=== PATIENT | male | born 1975 | race Caucasian/White ===

== ENCOUNTER → 2019-04-29 09:36 | Outpatient (BNVA) | payer OTHER, SELFPAY | PROVIDERS: Visit Provider Nurse Practitioner Family | DX: I10 Essential (primary) hypertension (principal); F32.9 Major depressive disorder, single episode, unspecified; E78.2 Mixed hyperlipidemia; F17.200 Nicotine dependence, unspecified, uncomplicated | CPT/HCPCS: 80053; 80061; 85025 ==

== ENCOUNTER → 2019-07-16 09:05 | Outpatient (BNVA) | payer OTHER, SELFPAY | PROVIDERS: Visit Provider Nurse Practitioner Family | DX: D72.829 Elevated white blood cell count, unspecified (principal) | CPT/HCPCS: 85025 ==

== ENCOUNTER → 2020-01-20 10:11 | Outpatient (BNVA) | payer OTHER, SELFPAY | PROVIDERS: Visit Provider Nurse Practitioner Family | DX: I10 Essential (primary) hypertension (principal); Z12.5 Encounter for screening for malignant neoplasm of prostate; Z00.00 Encounter for general adult medical examination without abnormal findings; F32.9 Major depressive disorder, single episode, unspecified; E78.2 Mixed hyperlipidemia; D72.829 Elevated white blood cell count, unspecified; F17.200 Nicotine dependence, unspecified, uncomplicated | CPT/HCPCS: 80053; 80061; 84443; 85025; G0103 ==

== ENCOUNTER → 2021-04-28 17:04 | Outpatient (BNVA) | payer OTHER, SELFPAY | PROVIDERS: PCP Nurse Practitioner Family; Visit Provider Nurse Practitioner Family | DX: I10 Essential (primary) hypertension (principal); Z12.5 Encounter for screening for malignant neoplasm of prostate; Z12.83 Encounter for screening for malignant neoplasm of skin; E78.2 Mixed hyperlipidemia; Z00.00 Encounter for general adult medical examination without abnormal findings; Z12.11 Encounter for screening for malignant neoplasm of colon; Z12.12 Encounter for screening for malignant neoplasm of rectum | CPT/HCPCS: 80053; 80061; 83721; 84443; 85025; G0103 ==

== ENCOUNTER 2021-07-29 06:24 | Day surgery (SDC) | payer OTHER, SELFPAY ==
[2021-07-27 09:09] VITALS: BMI 32.1
--- NOTE | 2021-07-29 06:40 | P.HP_ITS ---
Same Day Surgery H&P Indication for Procedure/HPI DATE OF PROCEDURE: July 29, 2021 CHIEF COMPLAINT/INDICATIONFOR SURGICAL PROCEDURE: Screening colonoscopy PREOP DIAGNOSIS: Screening colonoscopy PLANNED PROCEDURE: Operation Date: 07/29/21 08:00 Proposed Procedures p Colonoscopy 97585/[id number](Not Applicable) - Tom Singh MD This is a pleasant 46 years old gentleman presents to my practice for screening colonoscopy. Patient reports no change in bowel habits or colon cancer. Or bleeding per rectum. ROS All systems have been reviewed negative except as for the above or per problem list. Medications/Allergies* Home Medications Medication Instructions Recorded Confirmed Type citalopram 20 mg tablet 20 mg PO DAILY 07/27/21 07/27/21 History hydrochlorothiazide 25 mg tablet 25 mg PO DAILY 07/27/21 07/27/21 History Allergies/Adverse Reactions Allergy/AdvReac Type Severity Reaction Status Date / Time No Known Allergies Allergy Verified 07/29/21 07:21 Pertinent History/Comorbid Conditions* Medical History (Updated 04/28/21 @ 16:04 by MEE Oliver) Depression Hyperlipidemia Hypertension Osteoporosis Surgical History (Updated 01/20/20 @ 10:03 by MEE Oliver) No pertinent past surgical history Family History (Updated 04/29/19 @ 09:11 by Eun Quiros LPN, RT) Heart disease Hypertension Family/Other Social History Smoking and tobacco status: current every day smoker cigarettes Packs smoked per day: 1 Years cigarettes smoked: 23 Second hand smoke exposure: Yes Alcohol intake: former Household members: family Marital status: Single History of recent travel: No Current gender identity: Male Special lowell needs: No Agree to transfusion: Yes Pertinent Exam Findings alert, oriented x 3, clear to auscultation bilaterally, regular rate & rhythm and procedure specific exam findings (Abdominal examination nontender nondistended soft) Recommendations Surgery/Procedure today (Screening colonoscopy) Other Plans: Plan of care; After thorough history and physical examination and reviewing the chart, plan to perform screening colonoscopy. I discussed with the patient in details the risks,benefits,alternatives and indications.The risk of aspiration, bleeding, soft tissue injury, perforation of the colon and other potential concomitant complications were explained to the patient in details,also the potential need for Laproscoy/Laparotomy to repair any related complications including but not limited to colectomy and or Closotomy.The patient understood this well and did agree to proceed. Rationale was carefully and clearly discussed with the patient.Appropriate informed consent have been reviewed and signed All questions have been answered and all concerns have been addressed to patient's satisfaction. Verbal and written Instructions were given to the patient for colonoscopy prep Coding Level of Care Code Acute Multimedia Engineer for Dustin Pham
[2021-07-29 06:49] VITALS: BP 135/87; PULSE 70; RESP 18; TEMP 36.6; O2SAT 96
--- NOTE | 2021-07-29 06:54 | P.ANESASSM_ITS ---
Pre-Anesthetic Assessment Height/Weight: Height 1.7 m Weight 92.986 kg Temp Pulse Resp BP Pulse Ox 98 F 70 18 135/87 96 07/29/21 06:49 07/29/21 06:49 07/29/21 06:49 07/29/21 06:49 07/29/21 06:49 Preop Diagnosis: Screening colonoscopy Operation Date: 07/29/21 08:00 Proposed Procedures p Colonoscopy [id number]/[id number](Not Applicable) - Tom Singh MD Familial anesthetic complications: none Was Beta Eugenio taken within 24 hours: N/A Was Clonidine taken within 24 hours: N/A Last intake: Intake Last Liquid Date 07/28/21 Last Liquid Time 23:45 Last Solid Date 07/28/21 Last Solid Time 02:00 Social Tobacco and No alcohol Exam alert and oriented x 3 Airway Submandibular: within normal limits Cervical ROM: within normal limits Mallampati: Class II Dentition: full History/ROS No significant history except as noted Pulmonary None reported CV/HEM None reported None reported Hepatic None reported GI None reported Metabolic None reported Musc/skel None reported Neuropsych None reported Anesthetic Plan ASA status: 2 Anesthesia: Anesthesia Evaluation and MAC Risk of > 500 ml blood loss (7ml/kg in children): No Medications/Allergies Home Medications Medication Instructions Recorded Confirmed Last Taken Type rosuvastatin 40 mg tablet 40 mg PO QDAY #90 tab 04/22/21 07/27/21 07/27/21 Rx omega-3 fatty acids 1,000 mg 1,000 mg PO BID #60 cap 05/03/21 07/27/21 07/27/21 Rx capsule citalopram 20 mg tablet 20 mg PO DAILY 07/27/21 07/27/21 07/27/21 History hydrochlorothiazide 25 mg tablet 25 mg PO DAILY 07/27/21 07/27/21 Unknown History Allergies Allergy/AdvReac Type Severity Reaction Status Date / Time No Known Allergies Allergy Verified 04/28/21 15:49 [facility] Anesthesia Medical History Depression Hyperlipidemia Hypertension Osteoporosis Surgical History No pertinent past surgical history Family History Family/Other Hypertension Other Heart disease Social History Smoking and tobacco status: current every day smoker cigarettes Packs smoked per day: 1 Years cigarettes smoked: 23 Second hand smoke exposure: Yes Alcohol intake: former Household members: family Marital status: Single History of recent travel: No Current gender identity: Male Special lowell needs: No Agree to transfusion: Yes Data Anesthesia Cardiac Studies: No Data to Display
[2021-07-29] MEDS: sodium chloride 0.9% 1,000 ML 30 ML IV (07:00)
[2021-07-29 07:42] VITALS: BP 88/61; PULSE 64; RESP 17; TEMP 36.9; O2SAT 93
[2021-07-29 07:52] VITALS: BP 97/63; PULSE 68; RESP 16; O2SAT 96
[2021-07-29 07:59] VITALS: BP 106/67; PULSE 63; RESP 16; O2SAT 98
--- NOTE | 2021-07-29 11:54 | ANE.PACU2 ---
Inpatient post-anesthesia follow up: Airway intact: Yes Vital signs: Temperature 98.5 F Pulse Rate 63 Respiratory Rate 16 Blood Pressure 106/67 Pulse Oximetry 98 Oxygen Delivery Me thod Room Air Oxygen Flow Rate Fraction of Inspir ed Oxygen Hydration adequate: Yes Nausea and vomiting: No Pain level: 1 Mental status: Baseline
== END 2021-07-29 08:15 | disposition home or self-care (01) ==
PROVIDERS: PCP Nurse Practitioner Family; Visit Provider Surgery
PROC: 0DJD8ZZ Inspection of Lower Intestinal Tract, Via Natural or Artificial Opening Endoscopic (ICD-10-PCS; CPT 45378; principal; 2021-07-29 08:00)
DX: Z12.11 Encounter for screening for malignant neoplasm of colon (principal); K57.30 Diverticulosis of large intestine without perforation or abscess without bleeding; E78.5 Hyperlipidemia, unspecified; I10 Essential (primary) hypertension; M81.0 Age-related osteoporosis without current pathological fracture; F17.210 Nicotine dependence, cigarettes, uncomplicated
CPT/HCPCS: 45378; J2704; J7030

== ENCOUNTER → 2022-05-31 10:08 | Outpatient (BNVA) | payer OTHER, SELFPAY | PROVIDERS: PCP Nurse Practitioner Family; Visit Provider Nurse Practitioner Family | DX: I10 Essential (primary) hypertension (principal); Z12.5 Encounter for screening for malignant neoplasm of prostate | CPT/HCPCS: 80053; 80061; 84443; 85025; G0103 ==

== ENCOUNTER → 2023-07-16 09:10 | Outpatient (BNVA) | payer OTHER, SELFPAY | PROVIDERS: PCP Nurse Practitioner Family; Visit Provider Nurse Practitioner Family | DX: I10 Essential (primary) hypertension (principal); Z12.5 Encounter for screening for malignant neoplasm of prostate; Z00.00 Encounter for general adult medical examination without abnormal findings; F32.9 Major depressive disorder, single episode, unspecified; E78.2 Mixed hyperlipidemia; F17.200 Nicotine dependence, unspecified, uncomplicated; Z12.11 Encounter for screening for malignant neoplasm of colon; Z12.12 Encounter for screening for malignant neoplasm of rectum | CPT/HCPCS: 80053; 80061; 84443; 85025; G0103 ==

== ENCOUNTER → 2024-10-01 14:14 | Outpatient (BNVA) | payer OTHER, SELFPAY | PROVIDERS: Family Provider Nurse Practitioner Family; PCP Nurse Practitioner Family; Visit Provider Nurse Practitioner Family | DX: I10 Essential (primary) hypertension (principal); Z12.5 Encounter for screening for malignant neoplasm of prostate | CPT/HCPCS: 80053; 80061; 84443; 85025; G0103 ==